=== PATIENT | male | born 1960 | race Caucasian/White ===

== ENCOUNTER 2018-09-09 10:33 | Emergency (ER) | payer MEDICARE ==
[~2018-09-09] VITALS: Ht 182.9 cm; Wt 106.8 kg
[2018-09-09 10:41] VITALS: Ht 182.9 cm; Wt 106.8 kg
[2018-09-09] MEDS ORDERED: NEURONTIN600 MG PO (10:43)
[2018-09-09] MEDS ORDERED: GLIPIZIDE10 MG PO (10:43)
[2018-09-09] MEDS ORDERED: KLONOPIN1 MG PO (10:43)
[2018-09-09] MEDS ORDERED: LIORESAL 10 MG10 MG PO (10:44)
[2018-09-09] MEDS ORDERED: HYDROCHLOROTH12.5 M1 PO (10:44)
[2018-09-09] MEDS ORDERED: PROTONIX40 MG PO (10:44)
[2018-09-09] MEDS ORDERED: GLUCOPHAGE500 MG PO (10:44)
[2018-09-09] MEDS ORDERED: LISINOPRIL40 MG PO (10:44)
[2018-09-09 11:40] LABS: UDS - AMPHET NEGATIVE QUAL (NEGATIVE); UDS - BARB NEGATIVE QUAL (NEGATIVE); UDS - BENZO NEGATIVE QUAL (NEGATIVE); UDS - COCAINE NEGATIVE QUAL (NEGATIVE); UDS - OPIATE NEGATIVE QUAL (NEGATIVE); UDS - PCP NEGATIVE QUAL (NEGATIVE); UDS - THC POSITIVE QUAL (NEGATIVE)
[2018-09-09 11:52] LABS: BASOPHILS 0.3 % (0-2); EOSINOPHILS 1.9 % (0-7); HEMATOCRIT 44.4 % (42.0-54.0); HEMOGLOBIN 15.1 g/dL (13.5-17.5); IMMATURE GRANULOCYTES 0.3 % (0-5); LYMPHOCYTES 27.9 % (15-50); MCH 31.9 pg (26.0-34.0); MCV 93.9 fL (80.0-100.0); MEAN PLATELET VOLUME 11.4 fL (7.4-10.4); MONOCYTES 5.3 % (2-11); NEUTROPHILS 64.3 % (40-80); PLATELET COUNT 116 10x3/uL (130-400); RBC 4.73 10x6/uL (4.20-6.10); RDW 13.5 % (11.5-14.5); WBC 7.8 10x3/uL (4.8-10.8)
[2018-09-09 12:05] LABS: ALBUMIN 3.5 g/dL (3.4-5.0); BILIRUBIN - TOTAL 0.45 mg/dL (0.2-1.3); CALCIUM 9.3 mg/dL (8.5-10.1); CARBON DIOXIDE 26.1 mmol/L (21.0-32.0); CREATININE - SERUM 1.4 mg/dL (0.6-1.3); MAGNESIUM - SERUM 1.6 mg/dL (1.8-2.4); POTASSIUM - SERUM 4.1 mmol/L (3.5-5.1); PROTEIN - SERUM 7.8 g/dL (6.4-8.2)
[2018-09-09 12:06] LABS: APPEARANCE CLEAR (CLEAR); COLOR YELLOW (YELLOW); SPECIFIC GRAVITY 1.015 (1.005-1.020)
[2018-09-09 12:07] LABS: BACTERIA FEW /hpf (NONE SEEN); BILIRUBIN NEGATIVE (NEGATIVE); EPITHELIAL CELLS OCC /hpf (0-5); GLUCOSE NEGATIVE (NEGATIVE); KETONE NEGATIVE (NEGATIVE); MUCUS <1+ /lpf (NONE SEEN); NITRITE NEGATIVE (NEGATIVE); PROTEIN 2+ mg/dL (NEGATIVE); RED CELLS - URINE OCC /hpf (0-5); WHITE CELLS - URINE OCC /hpf (0-5)
[2018-09-09 13:10] VITALS: BP 153/89
== END 2018-09-09 14:48 ==
LOC: D.ER 10:33
PROVIDERS: Family Medicine
DX: R45.851 Suicidal ideations (principal); F41.9 Anxiety disorder, unspecified; F32.9 Major depressive disorder, single episode, unspecified